=== PATIENT | male | born 1960 | race Caucasian/White ===

== ENCOUNTER → 2021-03-06 09:59 | Outpatient (CLI) | payer BC, SELFPAY | PROVIDERS: PCP Family Medicine; Referring Provider Family Medicine; Visit Provider Family Medicine | DX: M47.22 Other spondylosis with radiculopathy, cervical region (principal); R29.898 Other symptoms and signs involving the musculoskeletal system; Z53.20 Procedure and treatment not carried out because of patient's decision for unspecified reasons ==

== ENCOUNTER → 2021-03-09 14:41 | Outpatient (CLI) | payer BC, SELFPAY ==
--- NOTE | 2021-03-09 14:42 | DI.CT.S_ITS ---
PROCEDURE: CT CERVICAL SPINE WO CON INDICATIONS: Neck and back pain TECHNIQUE: Noncontrast 3 mm thick sections acquired from the skull base to the T4 level. Sagittal and coronal reformats were then constructed. For radiation dose reduction, the following was used: automated exposure control, adjustment of mA and/or kV according to patient size. COMPARISON: None. FINDINGS: Image quality: Excellent. Bones: No fractures or dislocations. Visualized superior ribs are intact. Degenerative changes are seen, with moderate disc space narrowing at C3-C4, C4-C5, and C6-C7, with moderate to severe disc space narrowing at C5-C6. Endplate irregularity and sclerosis are seen, which are worst at the C5-C6 level. Post erected endplate osteophytes are seen, which are worst at C5-C6 and C6-C7. Reversal of the normal cervical lordosis is seen, with the apex at the C4-C5 level. No focal AP alignment abnormality is seen. Soft tissues: Prevertebral soft tissues are normal in thickness. No paravertebral hematomas. No apical pneumothoraces. IMPRESSION: Cervical spine degenerative changes are seen, which are worst at C5-C6. Reversal of the normal cervical lordosis is seen. This is commonly observed in patients with muscular spasm. Dictated by: Prosper Del Rio M.D. on 03/09/2021 at 14:03 Approved by: Prosper Del Rio M.D. on 03/09/2021 at 14:04
== END ==
PROVIDERS: PCP Family Medicine; Referring Provider Family Medicine; Visit Provider Family Medicine
DX: M50.322 Other cervical disc degeneration at C5-C6 level (principal); M25.512 Pain in left shoulder; M54.9 Dorsalgia, unspecified
CPT/HCPCS: 72125

== ENCOUNTER 2022-03-12 16:55 | Emergency (ER) | payer BC, SELFPAY ==
[2022-03-12 17:03] VITALS: BP 119/68; PULSE 81; RESP 18; TEMP 36.3; O2SAT 98
--- NOTE | 2022-03-12 17:19 | ED_ITS ---
HPI - Fall General Chief Complaint: Fall Stated Complaint: Fell off bulk head hit head Time Seen by Provider: 03/12/22 17:19 Source: patient Mode of arrival: Ambulatory Limitations: no limitations History of Present Illness HPI Narrative: This is a 61-year-old male who states that he had a 6 ft fall. He was at home there is a ball CAD in his yd and he fell about 6 ft straight down landing on his forehead and scraping his 4, cheek, ear and having a speak very small laceration to his lip. Patient states he has some swelling underneath the abrasion, some mild neck pain but no pain with movement, denies chest pain, shortness of breath, denies any thoracic or back pain. No numbness, tingling or weakness. He denies any loss of consciousness. Denies any vision changes. No nausea or vomiting. No bowel or bladder incontinence. Patient states this happened about 4 hours prior to arrival he has had an area of abrasion that continues to ooze. He presents now after talking with some friends who encouraged him to be evaluated. Patient is unsure of his tetanus status. He denies any anticoagulants including aspirin. He denies any prescription medications but does take vitamins daily. Denies any major surgeries. Denies any no known drug allergies. No tobacco, occasional alcohol he states he had a beer after his fall. No illicit. Related Data Previous Rx's Medication Instructions Recorded cyclobenzaprine 10 mg tablet 10 mg PO BEDTIME #30 tab 02/17/21 gabapentin 300 mg capsule 300 mg PO BID PRN #21 cap 02/28/21 prednisone 50 mg tablet 50 mg PO DAILY #5 tab 02/28/21 Allergies Allergy/AdvReac Type Severity Reaction Status Date / Time No Known Drug Allergies Allergy Unverified 02/28/21 16:13 insect bite Allergy Unknown Got bit Uncoded 02/28/21 16:13 by an ant once on my leg and my chest swelled up Review of Systems Review of Systems ROS Unobtainable: All systems reviewed & are unremarkable except as noted in HPI and below Patient History Medical History Well adult exam Social History Smoking Status: Never smoker alcohol intake: current (2 beers per week ) substance use type: does not use Smoking Status: Never smoker Exam Narrative Exam Narrative: GEN: Patient appears in mild distress. HEAD: Patient has an abrasion that is have cm circumareolar with a small amount of ooze that is persistent over the left scalp patient has small abrasion of the right ear at the pinna, as well as a very superficial laceration of the inner left lower lip that is less than 1 cm and does not gape, no raccoon/Stephens sign. NECK: Nontender, painless range of motion, trachea midline Negative Nexus criteria, is no midline line tenderness, distracting injury, altered mental status, neuro deficit, recent EtOH. EYES: PERRLA, EOMI ENT: See above, patient also has abrasion of the right cheek, trachea is midline, TM's are normal no hemotypanum, Nares are clear, no septal hematoma, no dental or oral injur other than noted above, airway is normal and with normal occlusion, No bony tenderness RESP: Chest is nontender and has symmetric movement, no ecchymosis, breath sounds are normal no crackles, wheezes or rales CVS: Heart sounds are normal, no murmur noted, No JVD. ABG/GI: Nontender, soft, normal bowel sounds, no distention, no organomegaly, pelvic rock is negative NEURO: Oriented AOx3, neuro is grossly intact, sensation and motor is normal all 4 extremities moving, cranial nerves II through XII are intact, GCS is 15 PSYCH: Normal mood and affect SKIN: Patient has several small abrasions on his fingers and forearms, cheek, warm and dry, no crepitus and without decubitus BACK: No CVA tenderness, no vertebral tenderness, no step-off's, no crepitus EXT: Atraumatic other jamia noted above, hips are nontender, normal gait. 5/5 muscle strength upper and lower extremities. Initial Vital Signs Initial Vital Signs: Vital Signs Temperature 97.4 F L 03/12/22 17:03 Pulse Rate 81 03/12/22 17:03 Respiratory Rate 18 03/12/22 17:03 Blood Pressure 119/68 03/12/22 17:03 Pulse Oximetry 98 03/12/22 17:[address] Head Rule Age <16 years old: No Patient on blood thinners: No Seizure after injury: No Exclusion: Patient NOT Excluded, Proceed to next steps GCS < 15 at 2 hr post trauma: No Suspected open or depressed skull fracture: No Any sign of basilar skull fracture (hemotympanum, raccoon eyes, Stephens's sign, CSF bob-/rhinorrhea): No Two or more episodes of vomiting: No Age greater or equal to 65 years: No Retrograde amnesia to the event greater or equal to 30 min: No Dangerous Mechanism (pedestrian vs. mv, occupant ejected from mv, fall from >3 ft or > 5 stairs): Yes Recommendation: Consider CT. The [place] Head CT Rule cannot rule out need for Imaging. GCS Gianluca coma scale eye opening: Spontaneous Lennon coma scale verbal response: Orientated Lennon coma scale motor response: Obey commands Lennon coma scale total score: 15 Nexus Score for C-Spine Focal Neurologic deficit present: No Midline spinal tenderness present: No Altered level of conciousness present: No Intoxication present: Yes (had a beer afterward.) Distracting Injury Present: No Nexus Criteria for C-spine: 1 Course Orders Ordered: Discontinued Medications Diphtheria/Tetanus/Acell Pertussis (Tet,Diph,Pertuss(Acell),Vac/Pf 0.5 Ml Syringe) 0.5 ml IM .ONCE ONE Stop: 03/12/22 17:38 Last Admin: 03/12/22 18:15 Dose: Not Given Documented by: JAVIER Reevaluation(s) Reevaluation #1: Patient's bleeding improved with Surgicel and a pressure bandage. He had an abrasion with no clear laceration that is easily repairable. Reviewed patient's imaging is head CT and C-spine. These are both negative. Patient is appropriate to return home at this time. Return precautions discussed. Vital Signs Vital signs: Vital Signs - 8 hr 03/12/22 17:03 Temperature 97.4 F L Pulse Rate 81 Respiratory Rate 18 Blood Pressure 119/68 Pulse Oximetry 98 MDM - Fall Imaging Data CT scan - head: Radiologist's Impression: [address] [address] [address] Scan Report Signed Patient: Kenan Gray MR#: [id number] : 1960 Acct:[id number] Age/Sex: 61 / M Date of Service: 03/12/22 Loc: ED Accession Number: [id number] ?? Procedure: CT head/brain wo con Ordering Provider: Chapis Swenson D.O. PROCEDURE:? CT HEAD/BRAIN WO CON ? INDICATIONS:? fall, 6 ft onto forehead, abrasion scalp. no LOC. ? TECHNIQUE:? Noncontrast 4.5 mm thick angled axial sections acquired from the foramen magnum to the vertex, with coronal and sagittal reformats.? For radiation dose reduction, the following was used:? automated exposure control, adjustment of mA and/or kV according to patient size.? ? COMPARISON:? [facility], CT, CT CERVICAL SPINE WO CON, 03/12/2022, 17:49. ? FINDINGS:? Image quality:? Excellent.? ? CSF spaces:? Basal cisterns are patent.? No extra-axial fluid collections.? The ventricles are symmetric in size and shape.? ? Brain:? No intracranial bleeds or masses.? There is cerebral volume loss for age, with resultant ventricular and sulcal prominence.? There are periventricular and deep white matter chronic small vessel ischemic changes.? There is intracranial internal carotid artery atherosclerosis.? ? Skull and face:? Left forehead scalp hematoma can be seen.? No underlying calvarial fracture can be seen.? Calvarium and visualized facial bones appear intact, without suspicious lesions.? ? Sinuses:? Visualized sinuses and mastoids are clear.? ? ? IMPRESSION:? No acute intracranial hemorrhage is seen.? ? No acute intracranial process is seen.? ? Left forehead scalp hematoma noted, without an associated fracture. ? ? Dictated by: Prosper Del Rio M.D. on 03/12/2022 at 17:05 ? ? Approved by: Prosper Del Rio M.D. on 03/12/2022 at 17:06 CT - cervical spine: Radiologist's Impression: Kenan Gray??61??M??1960 ? Allergy/Adv: No Known Drug Allergies, [insect bite] (More??) Close Head CT (Signed) Prosper Del Rio - 03/12/[address] (Signed) Prosper Del Rio - 03/12/[address] (Signed) Prosper Del Rio - 03/09/21 Launch?Image [address] [address] [address] Scan Report Signed Patient: Kenan Gray MR#: [id number] : 1960 Acct:[id number] Age/Sex: 61 / M Date of Service: 03/12/22 Loc: ED Accession Number: [id number] ?? Procedure: CT cervical spine wo con Ordering Provider: Chapis Swenson D.O. PROCEDURE:? CT CERVICAL SPINE WO CON ? INDICATIONS:? fall ? TECHNIQUE:? Noncontrast 3 mm thick sections acquired from the skull base to the T4 level.? Sagittal and coronal reformats were then constructed.? For radiation dose reduction, the following was used:? automated exposure control, adjustment of mA and/or kV according to patient size.? ? COMPARISON:? [facility], CT, CT HEAD/BRAIN WO CON, 03/12/2022, 17:49.? [facility], CT, CT CERVICAL SPINE WO CON, 03/09/2021, 14:52. ? FINDINGS:? Image quality:? Excellent.? ? Bones:? No fractures or dislocations.? Visualized superior ribs are intact.? ? There is [id number] disc space narrowing seen at C3-C4, with mild disc space narrowing at C4-C5.? At least moderate disc space narrowing is seen at C5-C6.? Moderate disc space narrowing is seen at C6-C7.? Posteriorly directed endplate osteophytes are seen, which are worst at C3-C4 and at C5-C6.? There is straightening of the normal cervical lordosis. ? Soft tissues:? Prevertebral soft tissues are normal in thickness.? No paravertebral hematomas.? No apical pneumothoraces.? ? ? IMPRESSION:? Negative for acute fracture. ? Cervical spine degenerative changes are seen, which are overall worst at the C5- C6 level. ? ? ? Dictated by: Prosper Del Rio M.D. on 03/12/2022 at 17:07 ? ? Approved by: Prosper Del Rio M.D. on 03/12/2022 at 17:08 MDM Narrative Medical decision making narrative: This is a 61-year-old male who is not anticoagulated with a fall from 6 ft landing on his forehead he has an abrasion which been persistently oozing. Surgicel was applied to the area of ooze there is no laceration that is able to be repaired and this seemed to resolve constant using. He have a mechanism of 6 ft directly onto head with some mild headache and hematoma so head CT was felt to be appropriate he describes some mild discomfort in his neck no clear C-spine tenderness but patient states he had a beer after his fall so C-spine CT was included. Patient is unsure of his tetanus vaccination status, it is not available the EMR. Patient defers as he had Guillain-Kelford with his COVID vaccination. Patient's CTs are negative. Bleeding controlled with Surgicel and pressure bandage. Patient has some minor superficial abrasions not requiring repair. All questions answered patient appropriate for discharge home at this time. Discharge Plan Departure Patient Disposition: Home Clinical Impression: Fall, Abrasion head, Laceration of lip, Abrasion of cheek Instructions: DI for Closed Head Injury Activity Restrictions/Additional Instructions: Follow-up with your physician for recheck if your symptoms have not resolved. You may remove the Coban tomorrow morning. He can adjusted tonight if it is too tight. Allow the Surgicel to fall off do not feel this off. Please return for severe headaches, persistent bleeding, altered mental status or confusion, rapidly worsening neck or back pain, new numbness, tingling weakness, persistent vomiting or other new or concerning symptoms. Prescriptions: No Action cyclobenzaprine 10 mg tablet 10 mg PO BEDTIME Qty: 30 0RF gabapentin 300 mg capsule 300 mg PO BID PRN (Reason: nerve pain) Qty: 21 0RF prednisone 50 mg tablet 50 mg PO DAILY Qty: 5 0RF Referrals: Reinier Mathis DO [Primary Care Provider] -
--- NOTE | 2022-03-12 17:32 | DI.CT.S_ITS ---
PROCEDURE: CT HEAD/BRAIN WO CON INDICATIONS: fall, 6 ft onto forehead, abrasion scalp. no LOC. TECHNIQUE: Noncontrast 4.5 mm thick angled axial sections acquired from the foramen magnum to the vertex, with coronal and sagittal reformats. For radiation dose reduction, the following was used: automated exposure control, adjustment of mA and/or kV according to patient size. COMPARISON: [facility], CT, CT CERVICAL SPINE WO CON, 03/12/2022, 17:49. FINDINGS: Image quality: Excellent. CSF spaces: Basal cisterns are patent. No extra-axial fluid collections. The ventricles are symmetric in size and shape. Brain: No intracranial bleeds or masses. There is cerebral volume loss for age, with resultant ventricular and sulcal prominence. There are periventricular and deep white matter chronic small vessel ischemic changes. There is intracranial internal carotid artery atherosclerosis. Skull and face: Left forehead scalp hematoma can be seen. No underlying calvarial fracture can be seen. Calvarium and visualized facial bones appear intact, without suspicious lesions. Sinuses: Visualized sinuses and mastoids are clear. IMPRESSION: No acute intracranial hemorrhage is seen. No acute intracranial process is seen. Left forehead scalp hematoma noted, without an associated fracture. Dictated by: Prosper Del Rio M.D. on 03/12/2022 at 17:05 Approved by: Prosper Del Rio M.D. on 03/12/2022 at 17:06
--- NOTE | 2022-03-12 17:32 | DI.CT.S_ITS ---
PROCEDURE: CT CERVICAL SPINE WO CON INDICATIONS: fall TECHNIQUE: Noncontrast 3 mm thick sections acquired from the skull base to the T4 level. Sagittal and coronal reformats were then constructed. For radiation dose reduction, the following was used: automated exposure control, adjustment of mA and/or kV according to patient size. COMPARISON: [facility], CT, CT HEAD/BRAIN WO CON, 03/12/2022, 17:49. [facility], CT, CT CERVICAL SPINE WO CON, 03/09/2021, 14:52. FINDINGS: Image quality: Excellent. Bones: No fractures or dislocations. Visualized superior ribs are intact. There is [id number] disc space narrowing seen at C3-C4, with mild disc space narrowing at C4-C5. At least moderate disc space narrowing is seen at C5-C6. Moderate disc space narrowing is seen at C6-C7. Posteriorly directed endplate osteophytes are seen, which are worst at C3-C4 and at C5-C6. There is straightening of the normal cervical lordosis. Soft tissues: Prevertebral soft tissues are normal in thickness. No paravertebral hematomas. No apical pneumothoraces. IMPRESSION: Negative for acute fracture. Cervical spine degenerative changes are seen, which are overall worst at the C5-C6 level. Dictated by: Prosper Del Rio M.D. on 03/12/2022 at 17:07 Approved by: Prosper Del Rio M.D. on 03/12/2022 at 17:08
[2022-03-12 18:38] VITALS: BP 110/10; PULSE 75; RESP 18; O2SAT 98
== END 2022-03-12 18:43 | disposition home or self-care (01) ==
PROVIDERS: Emergency Provider Emergency Medicine; PCP Family Medicine
DX: S01.511A Laceration without foreign body of lip, initial encounter (principal); W17.89XA Other fall from one level to another, initial encounter; Y92.009 Unspecified place in unspecified non-institutional (private) residence as the place of occurrence of the external cause
CPT/HCPCS: 70450; 72125; 99281; 99283

== ENCOUNTER → 2025-08-01 09:02 | Outpatient (CLI) | payer BC, SELFPAY | PROVIDERS: Visit Provider Nurse Practitioner Family | DX: J02.9 Acute pharyngitis, unspecified (principal) | CPT/HCPCS: 87070 ==

== ENCOUNTER → 2025-09-08 11:03 | Outpatient (CLI) | payer BC, SELFPAY ==
--- NOTE | 2025-09-08 11:04 | DI.RAD.S_ITS ---
PROCEDURE: XR WRIST LT MIN 3V INDICATIONS: Left wrist pain over radius TECHNIQUE: 4 views of the wrist were acquired. COMPARISON: None. FINDINGS: Bones: No fractures or dislocations. No suspicious bony lesions. Soft tissues: No suspicious soft tissue calcifications. IMPRESSION: No acute bony abnormality. Dictated by: Josselyn Escobar M.D. on 09/08/2025 at 14:36 Approved by: Josselyn Escobar M.D. on 09/08/2025 at 14:39
== END ==
PROVIDERS: PCP Family Medicine; Referring Provider Nurse Practitioner Family; Visit Provider Nurse Practitioner Family
DX: M25.532 Pain in left wrist (principal)
CPT/HCPCS: 73110